=== PATIENT | male | born 1985 | race Asian ===

== ENCOUNTER 2016-07-19 19:37 | Emergency (ER) | payer OTHER ==
[~2016-07-19] VITALS: Ht 182.9 cm; Wt 113.6 kg
[2016-07-19] MEDS ORDERED: METF500T4 PO (19:39)
[2016-07-19] MEDS ORDERED: LABETALOL HCL 5 MG/ML 20 ML VIAL IVP ONE ×2 (20:30→22:00)
[2016-07-19 20:40] LABS: BASOPHILS % (AUTO) 0.9 % (0.0-2.0); EOSINOPHILS % (AUTO) 3.7 % (1.0-6.0); HEMATOCRIT 48.3 % (41-53); HEMOGLOBIN 15.8 g/dL (13.5-17.5); LYMPHOCYTES # (AUTO) 2.3 K/uL (1.0-4.8); LYMPHOCYTES % (AUTO) 24.4 % (22.0-44.0); MEAN CORPUSCULAR HEMOGLOBIN 30.2 pg (26.0-34.0); MEAN CORPUSCULAR HGB CONC 32.8 G/dL (31.0-37.0); MEAN CORPUSCULAR VOLUME 92 fL (80-100); MONOCYTES # (AUTO) 0.6 K/uL (0.1-1.0); MONOCYTES % (AUTO) 6.2 % (2.0-9.0); NEUTROPHILS % (AUTO) 64.8 % (40.0-70.0); PLATELET COUNT (AUTO) 278 K/uL (150-450); RED BLOOD CELL COUNT(AUTO) 5.24 MIL/uL (4.50-5.90); WHITE BLOOD COUNT (AUTO) 9.2 K/uL (4.5-11.0)
[2016-07-19 20:56] LABS: ANION GAP 10 mmol/L (8-16); CARBON DIOXIDE 29 mmol/L (22-29); CHLORIDE 101 mmol/L (98-107); CREATININE 1.33 mg/dL (0.60-1.30); GLOMERULAR FILTR. RATE CALC > 60 mL/min (>60); POTASSIUM 3.8 mmol/L (3.5-5.1); SODIUM SERUM 140 mmol/L (136-145); UREA NITROGEN, BLOOD 13 mg/dL (7-18)
[2016-07-19 21:04] LABS: LACTIC ACID 0.8 mmol/L (0.4-2.0)
[2016-07-19 21:09] LABS: B-TYPE NATRIURETIC PEPTIDE 60 pg/mL (0-100)
[2016-07-19 21:11] LABS: ALANINE AMINOTRANSFERASE 65 U/L (12-78); ALBUMIN 4.1 g/dL (3.4-5.0); ASPARTATE AMINOTRANSFERASE 36 U/L (15-37); BILIRUBIN,TOTAL 0.3 mg/dL (0.1-1.0); TOTAL PROTEIN, SERUM 8.1 g/dL (6.4-8.2)
[2016-07-19 22:16] LABS: GLUCOSE,POINT OF CARE 108 MG/DL (70-110)
[2016-07-19 23:10] VITALS: BP 157/117
[2016-07-19] MEDS ORDERED: CloNIDine HCL 0.1 MG TABLET PO PRN (23:15)
[2016-07-19] MEDS ORDERED: DEXTROSE 50%-WATER 25 GM/50 ML SYRINGE IVP PRN (23:15)
[2016-07-19] MEDS ORDERED: ACETAMINOPHEN 325 MG TABLET PO PRN (23:15)
[2016-07-19] MEDS ORDERED: OxyCODONE HCL/ACETAMINOPHEN 5-325 MG TABLET PO PRN (23:15)
[2016-07-19] MEDS ORDERED: INSULIN ASPART 100 UNITS/ML SQ PRN (23:15)
[2016-07-19] MEDS ORDERED: LOSARTAN POTASSIUM 25 MG TABLET PO SCH (23:15)
[2016-07-19] MEDS ORDERED: MAGNESIUM HYDROXIDE SUSPENSION 30 ML UDCUP PO PRN (23:15)
[2016-07-20] MEDS ORDERED: HEPARIN SODIUM,PORCINE 5,000 UNITS/ML VIAL SQ SCH
[2016-07-20] MEDS ORDERED: PANTOPRAZOLE SODIUM 40 MG DR TABLET PO SCH (09:00)
[2016-07-20] MEDS ORDERED: DOCUSATE SODIUM 100 MG CAPSULE PO SCH (09:00)
[2016-07-20] MEDS ORDERED: ASPIRIN 81 MG CHEWABLE TABLET PO SCH (09:00)
== END 2016-07-19 23:32 | disposition left against medical advice (07) ==
LOC: EMS 19:40
DX: I10 Essential (primary) hypertension (principal); R60.0 Localized edema; E11.9 Type 2 diabetes mellitus without complications
CPT/HCPCS: 36415; 71010; 80053; 82962; 83605; 83690; 83880; 84484; 85025; 93005; 96374; 96376; 99291; J3490

== ENCOUNTER 2016-07-24 21:06 | Inpatient (IN) | payer OTHER ==
[~2016-07-24] VITALS: Ht 182.9 cm; Wt 141.6 kg
[~2016-07-24 21:06] MED LIST: METF500T4 PO
[2016-07-24] MEDS ORDERED: POTA8TAB4 PO (21:17)
[2016-07-24] MEDS ORDERED: AMLO-512 PO (21:17)
[2016-07-24] MEDS ORDERED: FURO20 PO (21:17)
[2016-07-24] MEDS ORDERED: FUROSEMIDE 40 MG/4 ML VIAL IVP ONE (22:15)
[2016-07-24] MEDS ORDERED: LABETALOL HCL 5 MG/ML 20 ML VIAL IVP ONE (22:15)
[2016-07-24 22:29] LABS: BASOPHILS # (AUTO) 0.09 K/uL (0.00-0.20); BASOPHILS % (AUTO) 1.1 % (0.0-2.0); EOSINOPHILS # (AUTO) 0.41 K/uL (0.00-0.70); EOSINOPHILS % (AUTO) 4.65 % (1.0-6.0); HEMATOCRIT 49.5 % (41-53); HEMOGLOBIN 16.5 g/dL (13.5-17.5); LYMPHOCYTES # (AUTO) 2.1 K/uL (1.0-4.8); LYMPHOCYTES % (AUTO) 23.3 % (22.0-44.0); MEAN CORPUSCULAR HEMOGLOBIN 30.3 pg (26.0-34.0); MEAN CORPUSCULAR HGB CONC 33.3 G/dL (31.0-37.0); MEAN CORPUSCULAR VOLUME 91 fL (80-100); MONOCYTES # (AUTO) 0.7 K/uL (0.1-1.0); MONOCYTES % (AUTO) 7.5 % (2.0-9.0); NEUTROPHILS # (AUTO) 5.6 K/uL (1.8-7.7); NEUTROPHILS % (AUTO) 63.5 % (40.0-70.0); PLATELET COUNT (AUTO) 300 K/uL (150-450); RED BLOOD CELL COUNT(AUTO) 5.45 MIL/uL (4.50-5.90); RED CELL DISTRIBUTION WIDTH 15.3 % (11.5-14.5); WHITE BLOOD COUNT (AUTO) 8.8 K/uL (4.5-11.0)
[2016-07-24 22:40] LABS: ANION GAP 12 mmol/L (8-16); CALCIUM, TOTAL 8.9 mg/dL (8.8-10.5); CARBON DIOXIDE 25 mmol/L (22-29); CHLORIDE 100 mmol/L (98-107); CREATININE 1.18 mg/dL (0.60-1.30); GLOMERULAR FILTR. RATE CALC > 60 mL/min (>60); POTASSIUM 3.5 mmol/L (3.5-5.1); SODIUM SERUM 137 mmol/L (136-145); UREA NITROGEN, BLOOD 11 mg/dL (7-18)
[2016-07-24 22:45] LABS: ALANINE AMINOTRANSFERASE 60 U/L (12-78); ALBUMIN 4.1 g/dL (3.4-5.0); ASPARTATE AMINOTRANSFERASE 37 U/L (15-37); BILIRUBIN,TOTAL 0.2 mg/dL (0.1-1.0); TOTAL PROTEIN, SERUM 8.2 g/dL (6.4-8.2)
[2016-07-24 22:50] LABS: B-TYPE NATRIURETIC PEPTIDE 11 pg/mL (0-100)
[2016-07-24] MEDS ORDERED: ACETAMINOPHEN 325 MG TABLET PO PRN (23:30)
[2016-07-24] MEDS ORDERED: 0.9% SODIUM CHLORIDE 10 ML SYRINGE IVP PRN (23:30)
[2016-07-24] MEDS ORDERED: ONDANSETRON HCL 4 MG/2 ML VIAL IVP PRN (23:30)
[2016-07-24] MEDS ORDERED: ASPIRIN 325 MG TABLET PO ONE (23:30)
[2016-07-25] MEDS ORDERED: 0.9% SODIUM CHLORIDE 10 ML SYRINGE IVP PRN (02:00)
[2016-07-25] MEDS ORDERED: ACETAMINOPHEN 325 MG TABLET PO PRN (02:00)
[2016-07-25] MEDS ORDERED: HydrALAZINE HCL 20 MG/ML VIAL IVP PRN (02:00)
[2016-07-25] MEDS ORDERED: HYDROCODONE/ACETAMINOPHEN 5-325 MG TABLET PO PRN (02:00)
[2016-07-25 02:02] VITALS: BP 147/103
[2016-07-25 04:46] VITALS: BP 126/76
[2016-07-25 07:00] LABS: CHOL/HDL RATIO 8.3 (4.2-7.3)
[2016-07-25 07:21] VITALS: BP 140/100
[2016-07-25] MEDS ORDERED: AmLODIPine BESYLATE 10 MG TABLET PO SCH (09:00)
[2016-07-25] MEDS ORDERED: FUROSEMIDE 20 MG/2 ML VIAL IVP SCH (09:00)
[2016-07-25] MEDS ORDERED: POTASSIUM CHLORIDE 8 MEQ ER TABLET PO SCH (09:00)
[2016-07-25] MEDS ORDERED: PANTOPRAZOLE SODIUM 40 MG DR TABLET PO SCH (09:00)
[2016-07-25 11:14] VITALS: BP 142/99
[2016-07-25 11:22] LABS: APPEARANCE,URINE CLEAR (CLEAR); GLUCOSE, URINE (UA) NEGATIVE (NEGATIVE); KETONES,URINE NEGATIVE (NEGATIVE); LEUKOCYTE ESTERASE ,URINE NEGATIVE (NEGATIVE); OCCULT BLOOD,URINE NEGATIVE (NEGATIVE); PROTEIN,URINE NEGATIVE (NEGATIVE)
[2016-07-25 11:29] LABS: RBC,URINE None Seen /HPF (0-2); WBC,URINE 0-2 /HPF (0-5)
[2016-07-25 11:30] LABS: SQUAMOUS EPITHELIAL CELL,UR Rare /LPF (None Seen)
[2016-07-25] MEDS ORDERED: ASPI81 PO (15:03)
[2016-07-25] MEDS ORDERED: SIMV-260 PO (15:04)
[2016-07-25 15:58] VITALS: BP 115/72
[2016-08-03 12:42] LABS: GLUCOSE,POINT OF CARE 113 MG/DL (70-110)
== END 2016-07-25 16:10 | disposition home or self-care (01) | DRG 305 ==
LOC: EMS 21:09 → 5N 23:30
PROVIDERS: ADMIT Internal Medicine; ATTEND Internal Medicine
DX: I10 Essential (primary) hypertension (principal); E44.0 Moderate protein-calorie malnutrition; Z68.41 Body mass index [BMI] 40.0-44.9, adult; E11.9 Type 2 diabetes mellitus without complications; E66.01 Morbid (severe) obesity due to excess calories; E78.5 Hyperlipidemia, unspecified; R60.0 Localized edema; Z91.19 Patient's noncompliance with other medical treatment and regimen; Z79.899 Other long term (current) drug therapy
CPT/HCPCS: 82962; 83036; 93005; 93306; 96374; 96375; 99285; J1940; J3490